=== PATIENT | male | born 1970 | race Caucasian/White ===

== ENCOUNTER 2021-03-31 08:47 | Day surgery (SDC) | payer BC, OTHER ==
[~2021-03-31 08:47] MED LIST: Lactated Ringers 1,000 ML IV SCH; Sodium Chloride 0.9% 10 ML Syringe FLUSH PRN
[2021-03-31] MEDS ORDERED: Propofol 200 MG/20 ML SDV IV ONE (08:48)
[2021-03-31] MEDS ORDERED: Midazolam 1 MG/ML 2 ML SDV IV ONE (08:48)
--- NOTE | 2021-03-31 10:07 | PCM.HP.2 ---
H&P History of Present Illness - General Date of Service: 03/31/21 Admit Problem/Dx: Admission Diagnosis/Problem Admission Diagnosis/Problem Colonoscopy Source of Information: Patient, Old Records History Limitations: Reports: No Limitations - History of Present Illness Initial Comments - Free Text/Narative: Here for colonoscopy - Related Data Allergies/Adverse Reactions: Allergies Allergy/AdvReac Type Severity Reaction Status Date / Time JESSICA Inhibitors Allergy Swelling Verified 03/31/21 09:27 Home Medications: Home Meds Gabapentin [Neurontin] 600 mg PO TID 04/17/14 [History] Diclofenac Sodium [Voltaren] 75 mg PO BIDMEALS 03/30/21 [History] amLODIPine [Norvasc] 5 mg PO DAILY 03/30/21 [History] buPROPion HCL [Bupropion HCl Sr] 150 mg PO BID 03/30/21 [History] Past Medical History HEENT History: Reports: None Cardiovascular History: Reports: Hypertension Respiratory History: Reports: None Gastrointestinal History: Reports: None Genitourinary History: Reports: None Musculoskeletal History: Reports: Back Pain, Chronic, Fracture, Other (See Below) Other Musculoskeletal History: COLLAR BONE FX Neurological History: Reports: Neuropathy, Peripheral Psychiatric History: Reports: Depression Endocrine/Metabolic History: Reports: None Hematologic History: Reports: None Immunologic History: Reports: None Oncologic (Cancer) History: Reports: None Dermatologic History: Reports: None - Past Surgical History Head Surgeries/Procedures: Reports: None HEENT Surgical History: Reports: None Cardiovascular Surgical History: Reports: None Respiratory Surgical History: Reports: None GI Surgical History: Reports: Appendectomy Male Surgical History: Reports: None Endocrine Surgical History: Reports: None Neurological Surgical History: Reports: None Musculoskeletal Surgical History: Reports: None Oncologic Surgical History: Reports: None Dermatological Surgical History: Reports: None Social & Family History - Tobacco Use Tobacco Use Status *Q: Current Every Day Tobacco User Years of Tobacco use: 15 - Caffeine Use Caffeine Use: Reports: Soda, Tea - Recreational Drug Use Recreational Drug Use: No - Living Situation & Occupation Living situation: Reports: Single Occupation: Unemployed H&P Review of Systems - Review of Systems: Review Of Systems: Comprehensive ROS is negative, except as noted in HPI. Exam - Exam Exam: See Below - Vital Signs Vital Signs: Last Vital Signs Temp 98.2 F 03/31/21 09:12 Pulse 71 03/31/21 09:12 Resp 18 03/31/21 09:12 BP 145/97 H 03/31/21 09:12 Pulse Ox 96 03/31/21 09:12 Weight: 81.1 kg - Exam General: Alert, Oriented Lungs: Clear to Auscultation, Normal Respiratory Effort Cardiovascular: Regular Rate, Regular Rhythm GI/Abdominal Exam: Soft, Non-Tender Sepsis Event Note - Focused Exam Vital Signs: Vital Signs Temp Pulse Resp BP Pulse Ox 03/31/21 09:12 98.2 F 71 18 145/97 H 96 Problem List Initiated/Reviewed/Updated: Yes Orders Last 24hrs: Active Orders 24 hr Category Date Time Status Patient Status [ADT] Routine ADT 03/30/21 10:29 Ordered Patient to Empty Bladder [RC] ASDIRECTED Care 03/31/21 08:45 Active Verify Patient Consent Obtain [RC] ASDIRECTED Care 03/31/21 08:45 Active Nothing Per Oral Diet [DIET] Diet 03/31/21 Breakfast Ordered Lactated Ringers [Ringers, Lactated] 1,000 ml Med 03/31/21 08:45 Active IV ASDIRECTED Sodium Chloride 0.9% [Saline Flush] Med 03/31/21 08:45 Active 10 ml FLUSH ASDIRECTED PRN Peripheral IV Insertion Adult [OM.PC] Routine Oth 03/31/21 08:45 Ordered Resuscitation Status Routine Resus Stat 03/30/21 10:26 Ordered Medication Orders Lactated Ringer's (Ringers, Lactated) 1,000 mls @ 125 mls/hr IV ASDIRECTED SRIRAM Last Admin: 03/31/21 09:29 Dose: 125 mls/hr Documented by: GEORGES Sodium Chloride (Sodium Chloride 0.9% 10 Ml Syringe) 10 ml FLUSH ASDIRECTED PRN PRN Reason: Keep Vein Open Assessment/Plan Comment:: Colon Screening Ok to proceed; risks and complications reviewed, consent obtained
--- NOTE | 2021-03-31 10:33 | PCM.OPNOTE ---
- General Post-Op/Procedure Note Date of Surgery/Procedure: 03/31/21 Operative Procedure(s): Colonoscopy with polypectomy/Bx Findings: Trans colitis, desc polyp Pre Op Diagnosis: Screening Post-Op Diagnosis: Same Anesthesia Technique: VERONIKA Primary Surgeon: Jimmy Lewis Anesthesia Provider: Mirta Rod Complications: None Condition: Good
[2021-03-31 11:04] VITALS: BP 137/102; PULSE 74
--- NOTE | 2021-03-31 14:38 | OR ---
DATE OF OPERATION: 03/31/2021 SURGEON: Jimmy Lewis MD PREOPERATIVE DIAGNOSIS: Colon screening. POSTOPERATIVE DIAGNOSES: 1. Descending colon polyp. 2. Transverse colon inflammation. PROCEDURE: Colonoscopy with polypectomy and biopsy. ANESTHESIA: IV sedation. DESCRIPTION OF PROCEDURE: The patient was brought to the procedure room where he was placed on his left side and IV sedation administered. Digital rectal exam was performed which was normal. Colonoscope was inserted and advanced to the level of the cecum without difficulty. Cecal position was confirmed by identifying the appendiceal lumen and ileocecal valve. Prep was good and surfaces were well visualized. Upon withdrawing the scope, the ascending colon was normal. Transverse colon had an area of mild inflammation and I did biopsy this area. Descending colon had a small 6 mm sessile polyp removed with a cautery snare. Sigmoid colon and diverticula present. Rectum was normal and retroflexion was normal. Air was removed and the scope withdrawn. The patient tolerated the procedure well and returned to Recovery in stable condition. The patient will be contacted with the pathology report when it returns. If the polyp is adenomatous, he should undergo a repeat colonoscopy again in 5 years. Otherwise, he could wait 10 years until his next colon screening. /[id number] JIMMY/CHANEL
== END 2021-03-31 11:25 | disposition home or self-care (01) ==
LOC: FB.SDS 08:47
PROVIDERS: ATTEND Surgery
DX: Z12.11 Encounter for screening for malignant neoplasm of colon (principal); K51.40 Inflammatory polyps of colon without complications; K57.30 Diverticulosis of large intestine without perforation or abscess without bleeding; I10 Essential (primary) hypertension; G62.9 Polyneuropathy, unspecified; F17.210 Nicotine dependence, cigarettes, uncomplicated; Z79.899 Other long term (current) drug therapy
CPT/HCPCS: 00812-QZ; 88305; J2250; J2704; J7120

== ENCOUNTER 2024-07-25 02:10 | Emergency (ER) | payer BC, OTHER ==
[2024-07-25] MEDS: cefTRIAXone 1 GM Vial IVPUSH ONE (05:37)
[2024-07-25 06:18] VITALS: BP 100/75; PULSE 92
[2024-07-25 06:57] LABS: APPEARANCE,URINE CLEAR (CLEAR); BILIRUBIN,URINE NEGATIVE (NEGATIVE); COLOR,URINE YELLOW (YELLOW); GLUCOSE,URINE NORMAL (NORMAL); KETONES,URINE NEGATIVE (NEGATIVE); OCCULT BLOOD,URINE MODERATE (NEGATIVE); PROTEIN,URINE NEGATIVE (NEGATIVE)
[2024-07-25 06:58] LABS: BACTERIA,URINE RARE (NS); LEUKOCYTE ESTERASE,URINE NEGATIVE (NEGATIVE); NITRITE,URINE NEGATIVE (NEGATIVE); RBC,URINE 0-5 (0-5); SQUAMOUS EPITHELIAL CELLS,UR RARE (NS,R,O); UROBILINOGEN,URINE NORMAL (NEGATIVE); WBC,URINE 0-5 (0-5)
[2024-07-25 07:05] LABS: HEMATOCRIT 32.4 % (38.3-50.1); HEMOGLOBIN 10.9 g/dL (12.9-17.7); MEAN CORPUSCULAR HEMOGLOBIN 33.2 pg (27.0-33.3); MEAN CORPUSCULAR HGB CONC 33.7 g/dL (28.7-35.3); MEAN CORPUSCULAR VOLUME 98.6 fL (80.8-98.7); MEAN PLATELET VOLUME 8.3 fL (6.7-11.0); PLATELET COUNT,PLT 172 x10(3)uL (117-477); RED BLOOD CELL COUNT 3.29 x10(6)uL (3.90-5.90); RED CELL DISTRIBUTION WIDTH 14.4 % (12.4-15.0); WHITE BLOOD CELL COUNT,WBC 14.8 x10-3/uL (3.2-10.1)
[2024-07-25 07:08] LABS: BAND PERCENT MAN 1 % (0-6); CARBON DIOXIDE,CO2 27 mmol/L (21-32); CHLORIDE,CL 105 mmol/L (100-110); LYMPHOCYTES PERCENT MAN 8 % (13-37); MONOCYTES PERCENT MAN 3 % (4-12); POTASSIUM,K 4.3 mmol/L (3.5-5.3); SEG NEUTROPHILS PERCENT MAN 88 % (46-82); SODIUM,NA 145 mmol/L (135-145)
[2024-07-25 07:09] LABS: BLOOD UREA NITROGEN,BUN 36 mg/dL (7-18); GLUCOSE RANDOM 105 mg/dL (80-116)
[2024-07-25 07:10] LABS: A/G RATIO 1.3; ALANINE AMINOTRANSFERASE,ALT 28 U/L (12-36); ALBUMIN 3.9 g/dL (3.5-5.2); ALKALINE PHOSPHATASE 83 IU/L (56-112); ASPARTATE AMNIOTRANSFERASE,AST 31 IU/L (5-25); BILIRUBIN TOTAL 0.3 mg/dL (0.1-1.3); BUN/CREATININE RATIO 14.4 (9-20); CALCIUM 9.1 mg/dL (8.6-10.2); CREATININE 2.5 mg/dL (0.70-1.30); ESTIMATED GFR 30 mL/min (>60); PROTEIN TOTAL,TP 6.8 g/dL (6.0-8.0)
[2024-07-25 07:11] LABS: C-REACTIVE PROTEIN 1.17 mg/dL (<0.50)
== END 2024-07-25 06:10 ==
LOC: FB.ED 02:10
DX: S06.0X1A Concussion with loss of consciousness of 30 minutes or less, initial encounter (principal); R55 Syncope and collapse; C90.02 Multiple myeloma in relapse; I10 Essential (primary) hypertension; Z90.49 Acquired absence of other specified parts of digestive tract; Z88.8 Allergy status to other drugs, medicaments and biological substances; Z79.899 Other long term (current) drug therapy; W22.8XXA Striking against or struck by other objects, initial encounter; Y99.0 Civilian activity done for income or pay
CPT/HCPCS: 36415; 70450; 71045; 80053; 81001; 83605; 84484; 85025; 86140; 87040; 96374; 99285-25; J0696